=== PATIENT | male | born 1940 | race Caucasian/White ===

== ENCOUNTER 2021-09-01 01:07 | Outpatient (RCR) | payer MEDICARE, SELFPAY ==
[2021-08-31 09:00] VITALS: BP 108/66; PULSE 46; RESP 20; TEMP 36.4; O2SAT 100
[2021-08-31] MEDS: IMMUNE GLOBULIN 5 GM/50 ML BTL IVPB (09:19)
[2021-08-31] MEDS: Normal Saline Flush 10 ML SYR IVP (09:19)
[2021-08-31 09:32] VITALS: BP 115/76; PULSE 44; RESP 20; TEMP 36.4; O2SAT 98
[2021-08-31 09:45] VITALS: BP 120/72; PULSE 46; RESP 20; TEMP 36.3; O2SAT 98
[2021-08-31] MEDS: IMMUNE GLOBULIN 10 GM/100 ML BTL IVPB (09:51)
[2021-08-31] MEDS: IMMUNE GLOBULIN 40 GM/400 ML BTL IVPB (10:15)
[2021-08-31 10:20] VITALS: BP 149/86; PULSE 44; RESP 16; TEMP 36.6; O2SAT 98
[2021-08-31 10:50] VITALS: BP 163/87; PULSE 52; RESP 20; TEMP 36.6; O2SAT 99
[2021-08-31 11:24] VITALS: BP 164/102; PULSE 54; RESP 17; TEMP 36.6; O2SAT 99
[2021-09-01 09:15] VITALS: BP 131/76; PULSE 47; RESP 17; TEMP 35.9; O2SAT 99
[2021-09-01] MEDS: IMMUNE GLOBULIN 5 GM/50 ML BTL IVPB (09:29)
[2021-09-01] MEDS: Normal Saline Flush 10 ML SYR IVP (09:30)
[2021-09-01 09:45] VITALS: BP 123/76; PULSE 48; RESP 17; TEMP 36.6; O2SAT 96
[2021-09-01] MEDS: IMMUNE GLOBULIN 10 GM/100 ML BTL IVPB (10:01)
[2021-09-01 10:12] VITALS: BP 158/90; PULSE 49; RESP 18; TEMP 36.7; O2SAT 99
[2021-09-01] MEDS: IMMUNE GLOBULIN 40 GM/400 ML BTL IVPB (10:34)
[2021-09-01 10:50] VITALS: BP 158/77; PULSE 56; RESP 20; TEMP 36.7; O2SAT 99
[2021-09-01 11:25] VITALS: BP 166/91; PULSE 59; RESP 20; TEMP 36.9; O2SAT 99
[2021-09-01 11:50] VITALS: BP 194/108; PULSE 59
== END 2021-09-06 23:59 | disposition home or self-care (01) ==
LOC: INF 01:07
PROVIDERS: PCP Internal Medicine; Visit Provider Nurse Practitioner Acute Care
DX: G70.00 Myasthenia gravis without (acute) exacerbation (principal)
CPT/HCPCS: 96365; 96366; J1459

== ENCOUNTER 2021-09-23 01:26 | Outpatient (RCR) | payer MEDICARE, SELFPAY ==
[2021-09-07 00:16] VITALS: BP 194/108; PULSE 59; RESP 20; TEMP 36.9
[2021-09-22 09:10] VITALS: BP 123/75; PULSE 44; RESP 18; TEMP 36.4; O2SAT 99
[2021-09-22] MEDS: Normal Saline Flush 10 ML SYR IVP (09:15)
[2021-09-22] MEDS: IMMUNE GLOBULIN 5 GM/50 ML BTL IVPB (09:15)
[2021-09-22 09:33] VITALS: BP 114/73; PULSE 39; RESP 18; TEMP 36.4; O2SAT 98
[2021-09-22 09:50] VITALS: BP 88/49; PULSE 42; RESP 18; TEMP 36.3; O2SAT 98
[2021-09-22] MEDS: IMMUNE GLOBULIN 10 GM/100 ML BTL IVPB (09:51)
[2021-09-22 10:10] VITALS: BP 137/78; PULSE 47; RESP 18; TEMP 36.5; O2SAT 98
[2021-09-22] MEDS: IMMUNE GLOBULIN 40 GM/400 ML BTL IVPB (10:21)
[2021-09-22 10:46] VITALS: BP 135/76; PULSE 45; RESP 18; TEMP 36.3; O2SAT 99
[2021-09-22 11:17] VITALS: BP 152/85; PULSE 47; RESP 16; TEMP 36.4; O2SAT 99
[2021-09-23 12:05] VITALS: BP 133/75; PULSE 45; RESP 18; TEMP 36.7; O2SAT 100
[2021-09-23] MEDS: IMMUNE GLOBULIN 5 GM/50 ML BTL IVPB (12:09)
[2021-09-23] MEDS: Normal Saline Flush 10 ML SYR IVP (12:09)
[2021-09-23 12:20] VITALS: BP 120/71; PULSE 44; RESP 18; TEMP 36.5; O2SAT 99
[2021-09-23] MEDS: IMMUNE GLOBULIN 10 GM/100 ML BTL IVPB (12:28)
[2021-09-23 12:50] VITALS: BP 150/88; PULSE 43; RESP 20; TEMP 36.7; O2SAT 99
[2021-09-23] MEDS: IMMUNE GLOBULIN 40 GM/400 ML BTL IVPB (13:01)
[2021-09-23 13:30] VITALS: BP 146/79; PULSE 48; RESP 18; TEMP 36.5; O2SAT 100
[2021-09-23 14:00] VITALS: BP 156/85; PULSE 51; RESP 18; TEMP 36.6; O2SAT 100
== END 2021-10-06 23:59 | disposition home or self-care (01) ==
LOC: INF 01:26
PROVIDERS: PCP Internal Medicine; Visit Provider Nurse Practitioner Acute Care
DX: G70.00 Myasthenia gravis without (acute) exacerbation (principal)
CPT/HCPCS: 96365; 96366; J1459

== ENCOUNTER 2021-11-05 02:49 | Outpatient (RCR) | payer MEDICARE, SELFPAY ==
[2021-10-07 00:18] VITALS: BP 156/85; PULSE 51; RESP 18; TEMP 36.6
[2021-10-12 10:45] VITALS: BP 123/74; PULSE 56; RESP 19; TEMP 36.5; O2SAT 97
[2021-10-12] MEDS: Acetaminophen 325 MG TAB 650 MG PO (11:47)
[2021-10-12] MEDS: Normal Saline Flush 10 ML SYR IVP (11:47)
[2021-10-12] MEDS: IMMUNE GLOBULIN 5 GM/50 ML BTL IVPB (11:49)
[2021-10-12 12:32] VITALS: BP 112/70; PULSE 54; RESP 18; TEMP 36.3; O2SAT 98
[2021-10-12] MEDS: IMMUNE GLOBULIN 10 GM/100 ML BTL IVPB (12:33)
[2021-10-12 13:00] VITALS: BP 112/65; PULSE 56; RESP 17; TEMP 36.6; O2SAT 97
[2021-10-12] MEDS: IMMUNE GLOBULIN 40 GM/400 ML BTL IVPB (13:04)
[2021-10-12 13:32] VITALS: BP 118/66; PULSE 52; RESP 18; TEMP 36.4; O2SAT 97
[2021-10-12 14:04] VITALS: BP 135/77; PULSE 51; RESP 18; TEMP 36.3; O2SAT 97
[2021-10-13] MEDS: Acetaminophen 325 MG TAB 650 MG PO (09:12)
[2021-10-13] MEDS: IMMUNE GLOBULIN 5 GM/50 ML BTL IVPB (09:13)
[2021-10-13] MEDS: Normal Saline Flush 10 ML SYR IVP (09:13)
[2021-10-13 09:15] VITALS: BP 119/70; PULSE 50; RESP 17; TEMP 36.5; O2SAT 99
[2021-10-13 09:35] VITALS: BP 109/65; PULSE 50; RESP 17; TEMP 36.5; O2SAT 99
[2021-10-13] MEDS: IMMUNE GLOBULIN 10 GM/100 ML BTL IVPB (09:40)
[2021-10-13 09:50] VITALS: BP 120/70; PULSE 45; RESP 16; TEMP 36.6; O2SAT 98
[2021-10-13] MEDS: IMMUNE GLOBULIN 40 GM/400 ML BTL IVPB (10:18)
[2021-10-13 10:24] VITALS: BP 120/71; PULSE 51; RESP 17; TEMP 36.3; O2SAT 97
[2021-10-13 10:55] VITALS: BP 138/79; PULSE 42; RESP 17; TEMP 36.3; O2SAT 99
[2021-10-13 11:25] VITALS: BP 163/83; PULSE 51; RESP 16; TEMP 36.4; O2SAT 98
[2021-11-04] MEDS: IMMUNE GLOBULIN 5 GM/50 ML BTL IVPB (11:56)
[2021-11-04 12:00] VITALS: BP 149/82; PULSE 58; RESP 18; TEMP 36.7; O2SAT 98
[2021-11-04] MEDS: Normal Saline Flush 10 ML SYR IVP (12:04)
[2021-11-04 12:15] VITALS: BP 125/71; BP 150/76; PULSE 60; PULSE 63; RESP 16; RESP 17; TEMP 36.3; TEMP 36.8; O2SAT 95; O2SAT 96
[2021-11-04] MEDS: Acetaminophen 325 MG TAB (12:18)
[2021-11-04] MEDS: IMMUNE GLOBULIN 10 GM/100 ML BTL IVPB (12:30)
[2021-11-04 12:45] VITALS: BP 128/72; PULSE 60; RESP 16; TEMP 36.7; O2SAT 98
[2021-11-04] MEDS: IMMUNE GLOBULIN 40 GM/400 ML BTL IVPB (13:06)
[2021-11-04 13:15] VITALS: BP 121/73; PULSE 64; RESP 16; TEMP 36.7; O2SAT 97
[2021-11-05 12:05] VITALS: BP 133/79; PULSE 61; RESP 18; TEMP 37; O2SAT 97
[2021-11-05] MEDS: Acetaminophen 325 MG TAB (12:05)
[2021-11-05] MEDS: IMMUNE GLOBULIN 5 GM/50 ML BTL IVPB (12:10)
[2021-11-05] MEDS: Normal Saline Flush 10 ML SYR IVP (12:10)
[2021-11-05 12:27] VITALS: BP 142/84; PULSE 64; RESP 18; TEMP 36.5; O2SAT 98
[2021-11-05] MEDS: IMMUNE GLOBULIN 10 GM/100 ML BTL IVPB (12:29)
[2021-11-05 12:45] VITALS: BP 121/74; PULSE 66; RESP 20; TEMP 36.9; O2SAT 98
[2021-11-05] MEDS: IMMUNE GLOBULIN 40 GM/400 ML BTL IVPB (13:04)
[2021-11-05 13:15] VITALS: BP 128/72; PULSE 64; RESP 20; TEMP 36.6; O2SAT 96
[2021-11-05 13:45] VITALS: BP 137/76; PULSE 58; RESP 18; TEMP 36.6; O2SAT 97
[2021-11-05 14:15] VITALS: BP 146/78; PULSE 61; RESP 18; TEMP 36.6; O2SAT 98
== END 2021-11-06 23:59 | disposition home or self-care (01) ==
LOC: INF 02:49
PROVIDERS: PCP Internal Medicine; Visit Provider Nurse Practitioner Acute Care
DX: G70.01 Myasthenia gravis with (acute) exacerbation (principal)
CPT/HCPCS: 96365; 96366; J1459

== ENCOUNTER 2022-03-04 08:31 | Outpatient (CLI) | payer MEDICARE, SELFPAY ==
--- NOTE | 2022-03-04 06:00 | DI.RAD_ITS ---
Exam(s) XR PAIN CLINIC SACRIOILIAC 2V EXAM: XR PAIN CLINIC SACRIOILIAC 2V CLINICAL HISTORY: Dx: Sacroiliac joint dysfunction TECHNIQUE: 2D and realtime digital imaging was performed. COMPARISON: No exams were available for comparison FINDINGS: C-arm fluoroscopy was utilized by Dr. Dumont during reported right SI joint injection. Hard copy confi clarita injection in the right SI joint. IMPRESSION: RADIATION DOSE DELIVERED: noam Patricio=4.88 mGy
[2022-03-04 08:46] VITALS: BP 134/74; PULSE 62; RESP 20; TEMP 36.4; O2SAT 98
--- NOTE | 2022-03-04 10:08 | PDOC.PAIN_ITS ---
Pain Clinic Procedure Note Procedure Note Procedure Note: INTRA-ARTICULAR SI JOINT INJECTION Devin Correia has been referred to the [facility] for intra- articular SI joint injection. COMMENTS: He was seen by his spine surgeon, Dr. Hauser, who requested a right sacroiliac joint injection. His pre-procedure pain VAS was 6/10. DX: Right Sacroiliac joint dysfunction Patient was interviewed and the medical record reviewed. There were no medical, pharmacologic, radiographic or other structural contraindications to attempting fluoroscopically guided intra-articular SI joint injection. Risks and expected side effects as well as potential benefit of the procedure were reviewed and voiced concerns addressed. The printed consent form was signed and witnessed. Standard time-out procedure was performed. Patient was placed in the prone position on the fluoroscopy table and automated blood pressure cuff and pulse oximeter applied. The skin entry point for approaching the right SI joint was identified under the most advantageous fluoroscopic view and marked. Following thorough Chlorhexadine preparation of the skin and draping and 1% lidocaine infiltration of the skin entry point and subcutaneous tissues, a 22 gauge spinal needle was placed under fluoroscopic guidance into the right SI joint was identified under the most advantageous fluoroscopic view and marked. Intra-articular placement was confirmed by a clear arthrogram resulting from the injection of 0.25ml Omnipaque 240, 1ml 1% lidocaine, and 80mg Depomedrol were injected intra-articularily with an initial reproduction of a significant component of the usual pain. Vital signs were stable throughout the procedure and were as recorded in the docflowsheet by the nursing staff. If given, dosages of intravenous drugs for anxiolysis and analgesia were documented in MAR. Follow up plans and appointments were discussed with the patient. Post procedure instruction was given as documented in nursing documentation and having met discharge criteria, and was discharged from the [facility]. COMMENTS: Post-procedure pain VAS was 0/10. Perry Dumont DO, MPH [facility] [place] CC: Pinky Fitzpatrick
[2022-03-04 10:30] VITALS: BP 164/91; PULSE 53; RESP 19; O2SAT 99
[2022-03-04] MEDS: methylPREDNISolone ACETATE 80 MG/ML VIAL IJ (10:32)
[2022-03-04] MEDS: Omnipaque 240 MG/ML 50 ML BTL IJ (10:32)
== END 2022-03-04 08:32 | disposition home or self-care (01) ==
LOC: PC 08:32
PROVIDERS: PCP Internal Medicine; Visit Provider Preventive Medicine Occupational Medicine
DX: M53.3 Sacrococcygeal disorders, not elsewhere classified (principal)
CPT/HCPCS: 27096; 72200; J1040; Q9967

== ENCOUNTER 2022-12-08 09:15 | Outpatient (CLI) | payer MEDICARE, SELFPAY ==
--- NOTE | 2022-12-08 06:00 | DI.RAD_ITS ---
Exam(s) XR PAIN CLINIC SACRIOILIAC 2V EXAM: XR PAIN CLINIC SACRIOILIAC 2V CLINICAL HISTORY: Dx: Sacroiliac Joint Dysfunction. TECHNIQUE: Fluoroscopy was provided for the referring physician for guidance with performing pain cl inic injection procedure. COMPARISON: No exams were available for comparison FINDINGS: Please see procedure note for details. Fluoro time: 18.1 seconds RADIATION DOSE DELIVERED: Ka,r= 4.01 mGy
[2022-12-08 09:30] VITALS: BP 122/72; PULSE 60; RESP 20; TEMP 36.7; O2SAT 98
[2022-12-08 10:27] VITALS: BP 143/78; PULSE 62; RESP 15; O2SAT 100
[2022-12-08] MEDS: methylPREDNISolone ACETATE 40 MG/ML VIAL IJ (10:32)
[2022-12-08] MEDS: Omnipaque 240 MG/ML 50 ML BTL IJ (10:32)
--- NOTE | 2022-12-14 14:19 | PDOC.PAIN_ITS ---
Date of service: 12/08/22 Time of Service: 09:30 Pain Clinic Procedure Note Procedure Note Procedure Note: INTRA-ARTICULAR SI JOINT INJECTION Devin Correia has been referred to the [facility] for intra- articular SI joint injection. COMMENTS: He has listed prednisone as an allergy. He states that he felt nervous after taking an oral prednisone taper. I felt ok to proceed with the steroid injection as it is a one time dose and will be fairly isolated in the sacroiliac joint. Dx: Sacroiliac joint dysfunction Preprocedure pain VAS was 4/10. Patient was interviewed and the medical record reviewed. There were no medical, pharmacologic, radiographic or other structural contraindications to attempting fluoroscopically guided intra-articular SI joint injection. Risks and expected side effects as well as potential benefit of the procedure were reviewed and voiced concerns addressed. The printed consent form was signed and witnessed. Standard time-out procedure was performed. Patient was placed in the prone position on the fluoroscopy table and automated blood pressure cuff and pulse oximeter applied. The skin entry point for approaching the left SI joint was identified under the most advantageous fluoroscopic view and marked. Following thorough Chlorhexadine preparation of the skin and draping and 1% lidocaine infiltration of the skin entry point and subcutaneous tissues, a 22 gauge spinal needle was placed under fluoroscopic guidance into the left SI joint was identified under the most advantageous fluoroscopic view and marked. Intra-articular placement was confirmed by a clear arthrogram resulting from the injection of 0.25ml Omnipaque 240, 1ml 1% lidocaine, and 80mg Depomedrol were injected intra-articularily with an initial reproduction of a significant component of the usual pain. Vital signs were stable throughout the procedure and were as recorded in the docflowsheet by the nursing staff. If given, dosages of intravenous drugs for anxiolysis and analgesia were documented in MAR. Follow up plans and appointments were discussed with the patient. Post procedure instruction was given as documented in nursing documentation and having met discharge criteria, and was discharged from the [facility]. COMMENTS: Post-procedure pain VAS was 3/10. This procedure can be completed up to 3 times per 12 months. Perry Dumont DO, MPH [facility] CC: Pinky Fitzpatrick
== END 2022-12-08 09:16 | disposition home or self-care (01) ==
PROVIDERS: PCP Internal Medicine; Visit Provider Preventive Medicine Occupational Medicine
DX: M54.50 Low back pain, unspecified (principal); M53.3 Sacrococcygeal disorders, not elsewhere classified
CPT/HCPCS: 27096; 72200; G0260; J1030; Q9967

== ENCOUNTER 2025-01-04 01:42 | Outpatient (RCR) | payer MEDICARE, SELFPAY ==
[2024-12-21] MEDS: Normal Saline Flush 10 ML SYR IVP (13:21)
[2024-12-28] MEDS: Normal Saline Flush 10 ML SYR IVP (13:16)
[2025-01-04] MEDS: Normal Saline Flush 10 ML SYR IVP (12:57)
== END 2025-01-04 23:59 | disposition home or self-care (01) ==
LOC: INF 01:42
PROVIDERS: PCP Internal Medicine; Visit Provider Nurse Practitioner Acute Care
DX: G70.00 Myasthenia gravis without (acute) exacerbation (principal)
CPT/HCPCS: 96365; J9332

== ENCOUNTER 2025-01-11 00:38 | Outpatient (RCR) | payer MEDICARE, SELFPAY ==
[2025-01-11] MEDS: Normal Saline Flush 5 ML SYR IVP (13:14)
== END 2025-02-04 23:59 | disposition home or self-care (01) ==
LOC: INF 00:38
PROVIDERS: PCP Internal Medicine; Visit Provider Nurse Practitioner Acute Care
DX: G70.00 Myasthenia gravis without (acute) exacerbation (principal)
CPT/HCPCS: 96365; J9332

== ENCOUNTER → 2025-02-12 09:42 | Outpatient (BNVA) | payer MEDICARE, SELFPAY | PROVIDERS: PCP Internal Medicine; Referring Provider Internal Medicine; Visit Provider Podiatrist | DX: I73.89 Other specified peripheral vascular diseases (principal); L60.0 Ingrowing nail; L60.3 Nail dystrophy; B35.1 Tinea unguium; L03.031 Cellulitis of right toe; R09.89 Other specified symptoms and signs involving the circulatory and respiratory systems; L65.9 Nonscarring hair loss, unspecified; R23.8 Other skin changes; L60.2 Onychogryphosis | CPT/HCPCS: 11720; 93922 ==

== ENCOUNTER 2025-03-01 00:32 | Outpatient (RCR) | payer MEDICARE, SELFPAY ==
[2025-02-08] MEDS: Normal Saline Flush 5 ML SYR IVP (09:41)
[2025-02-15] MEDS: Normal Saline Flush 5 ML SYR IVP (09:09)
[2025-02-25] MEDS: Normal Saline Flush 5 ML SYR IVP (09:24)
[2025-03-01] MEDS: Normal Saline Flush 5 ML SYR IVP (09:11)
== END 2025-03-06 23:59 | disposition home or self-care (01) ==
LOC: INF 00:32
PROVIDERS: PCP Internal Medicine; Visit Provider Nurse Practitioner Acute Care
DX: G70.00 Myasthenia gravis without (acute) exacerbation (principal)
CPT/HCPCS: 96365; J9332

== ENCOUNTER → 2025-03-04 11:07 | Outpatient (BNVA) | payer MEDICARE, SELFPAY | PROVIDERS: PCP Internal Medicine; Referring Provider Internal Medicine; Visit Provider Podiatrist | DX: I73.89 Other specified peripheral vascular diseases (principal); L60.0 Ingrowing nail; L60.3 Nail dystrophy; B35.1 Tinea unguium; L03.031 Cellulitis of right toe | CPT/HCPCS: 11750 ==

== ENCOUNTER → 2025-03-26 11:22 | Outpatient (BNVA) | payer MEDICARE, SELFPAY | PROVIDERS: PCP Internal Medicine; Referring Provider Internal Medicine; Visit Provider Podiatrist | DX: I73.9 Peripheral vascular disease, unspecified; L60.0 Ingrowing nail; L60.3 Nail dystrophy; B35.1 Tinea unguium; L03.031 Cellulitis of right toe; R09.89 Other specified symptoms and signs involving the circulatory and respiratory systems; L65.9 Nonscarring hair loss, unspecified; R23.8 Other skin changes; L60.2 Onychogryphosis; L60.8 Other nail disorders | CPT/HCPCS: 11720; 99214 ==

== ENCOUNTER 2025-04-03 01:01 | Outpatient (RCR) | payer MEDICARE, SELFPAY ==
[2025-03-28] MEDS: Normal Saline Flush 10 ML SYR IVP (12:07)
[2025-04-03 10:56] VITALS: BP 163/92; PULSE 75; RESP 18; TEMP 36.3; O2SAT 98
[2025-04-03] MEDS: Normal Saline Flush 10 ML SYR IVP (12:00)
== END 2025-04-06 23:59 | disposition home or self-care (01) ==
LOC: INF 01:01
PROVIDERS: PCP Internal Medicine; Visit Provider Nurse Practitioner Acute Care
DX: G70.00 Myasthenia gravis without (acute) exacerbation (principal)
CPT/HCPCS: 96365; J9332

== ENCOUNTER → 2025-04-15 11:02 | Outpatient (BNVA) | payer MEDICARE, SELFPAY | PROVIDERS: PCP Internal Medicine; Referring Provider Internal Medicine; Visit Provider Podiatrist | DX: I73.89 Other specified peripheral vascular diseases (principal); L60.3 Nail dystrophy; L60.0 Ingrowing nail; B35.1 Tinea unguium; L03.031 Cellulitis of right toe | CPT/HCPCS: 99213 ==

== ENCOUNTER 2025-04-17 03:02 | Outpatient (RCR) | payer MEDICARE, SELFPAY ==
[2025-04-11] MEDS: Normal Saline Flush 10 ML SYR IVP (11:31)
[2025-04-17] MEDS: Normal Saline Flush 10 ML SYR IVP (11:34)
== END 2025-05-06 23:59 | disposition home or self-care (01) ==
LOC: INF 03:02
PROVIDERS: PCP Internal Medicine; Visit Provider Nurse Practitioner Acute Care
DX: G70.00 Myasthenia gravis without (acute) exacerbation (principal)
CPT/HCPCS: 96365; J9332

== ENCOUNTER 2025-05-30 01:46 | Outpatient (RCR) | payer MEDICARE, SELFPAY ==
[2025-05-17] MEDS: Normal Saline Flush 10 ML SYR IVP (13:33)
[2025-05-23] MEDS: Normal Saline Flush 10 ML SYR IVP (12:27)
[2025-05-30] MEDS: Normal Saline Flush 10 ML SYR IVP (13:56)
== END 2025-06-06 23:59 | disposition home or self-care (01) ==
LOC: INF 01:46
PROVIDERS: PCP Internal Medicine; Visit Provider Nurse Practitioner Acute Care
DX: G70.00 Myasthenia gravis without (acute) exacerbation (principal)
CPT/HCPCS: 96365; J9332

== ENCOUNTER 2025-06-06 02:27 | Outpatient (CLI) | payer MEDICARE, SELFPAY ==
[2025-06-06] MEDS: Normal Saline Flush 10 ML SYR IVP (12:19)
== END 2025-06-06 02:28 | disposition home or self-care (01) ==
LOC: INF 02:27
PROVIDERS: PCP Internal Medicine; Visit Provider Family Medicine
DX: G70.00 Myasthenia gravis without (acute) exacerbation (principal)
CPT/HCPCS: 96365; J9332

== ENCOUNTER 2025-06-28 00:11 | Outpatient (CLI) | payer MEDICARE, SELFPAY ==
[2025-06-28] MEDS: Normal Saline Flush 10 ML SYR IVP (10:39)
== END 2025-06-28 00:12 | disposition home or self-care (01) ==
LOC: INF 00:11
PROVIDERS: PCP Internal Medicine; Visit Provider Family Medicine
DX: G70.00 Myasthenia gravis without (acute) exacerbation (principal)
CPT/HCPCS: 96365; J9332